=== PATIENT | female | born 1940 | race Caucasian/White ===

== ENCOUNTER 2017-04-13 12:04 | Emergency (ER) | payer MEDICARE, OTHER ==
[2017-04-13 12:09] VITALS: BP 171/112; PULSE 96; RESP 16; TEMP 97.5
[2017-04-13] MEDS ORDERED: LISINOPRIL 5 MG TAB PO STA (12:26)
--- NOTE | 2017-04-13 12:33 | ED ---
General Adult HPI - General Chief complaint: Upper Respiratory Infection Stated complaint: SORE THROAT Time Seen by Provider: 04/13/17 12:12 Source: patient, RN notes reviewed Mode of arrival: ambulatory Limitations: no limitations - History of Present Illness Initial comments: Chief complaint and history of present illness is a 77-year-old female with complaint of runny nose and sore throat since yesterday. Denies headache denies pain to the sinuses. Denies fever. - Related Data Home Medications Medication Instructions Recorded Confirmed Multivitamins, Thera [Multivitamin 1 tab PO DAILY 04/13/17 04/13/17 (formulary)] Thyroid,Pork [[place] Thyroid] 30 mg PO DAILY 04/13/17 04/13/17 Previous Rx's Medication Instructions Recorded Amoxicillin 500 mg PO Q8H 7 Days 04/13/17 Lisinopril [Zestril] 5 mg PO DAILY #60 tab 04/13/17 Allergies Allergy/AdvReac Type Severity Reaction Status Date / Time No Known Allergies Allergy Verified 04/13/17 12:21 Review of Systems ROS Statement: Those systems with pertinent positive or pertinent negative responses have been documented in the HPI. Review of systems. No headache or visual acuity changes. runny nose with sore throat. Patient denies any numbness no tingling no neuro deficits. No chest pain or shortness of breath no coughing. No nausea no vomiting. Appetite good. All systems are reviewed. Past medical problems hypothyroidism, no surgeries. Family history no cancers. Patient denies any ALLERGIES. Nonsmoker nondrinker. Patient's blood pressure is 171/112. Denies having had trouble with high blood pressure. The patient will be treated for high blood pressure with lisinopril and advised to follow-up with family physician within the next 1-2 weeks. Get a blood pressure rechecked several times a week. ROS Other: All systems not noted in ROS Statement are negative. Past Medical History Past Medical History: Thyroid Disorder Additional Past Medical History / Comment(s): uti History of Any Multi-Drug Resistant Organisms: None Reported Past Surgical History: No Surgical Hx Reported Past Psychological History: No Psychological Hx Reported Smoking Status: Former smoker Past Alcohol Use History: None Reported Past Drug Use History: None Reported General Exam - General Exam Comments Initial Comments: General: The patient is awake and alert, in no distress, and does not appear acutely ill. Complains of abundant runny nose and sore throat. Vital signs are temperature 97.5 pulse 96 referred rate 16 pulse ox 96% room air blood pressure elevated 171/112. This be treated the emergency room. Eye: Pupils are equal, round and reactive to light, extra-ocular movements are intact ; there is normal conjunctiva bilaterally. No signs of icterus. Ears, nose, mouth and throat: There are moist mucous membranes and no oral lesions. Neck: The neck is supple, there is no tenderness , no anterior cervical lymphadenopathy, no meningismus. Cardiovascular: There is a regular rate and rhythm. No murmur, rub or gallop is appreciated. Respiratory: Lungs are clear to auscultation, respirations are non-labored, breath sounds are equal. No wheezes, stridor, rales, or rhonchi. Gastrointestinal: Soft, non-distended, non-tender abdomen without masses or organomegaly noted. There is no rebound or guarding present. No CVA tenderness. Bowel sounds are unremarkable. Good appetite. Back: There is no tenderness to palpation in the midline. Musculoskeletal: Normal ROM, no tenderness, There is no pedal edema. There is no calf tenderness or swelling. Sensation intact. Neurological: No dizziness, no neuro deficits. Alert and oriented. No complaints of any focal or lateralizing findings. Skin: Skin is warm and dry and no rashes or lesions are noted. Limitations: no limitations Course Vital Signs 04/13/17 12:07 Temperature 97.5 F L Pulse Rate 96 Respiratory 16 Rate Blood Pressure 171/112 O2 Sat by Pulse 96 Oximetry Medical Decision Making - Medical Decision Making The patient be treated for an upper respiratory tract infection. In addition to amoxicillin 500 3 times a day for a week she also be placed on over-the- counter Claritin 10 mg daily. Told follow with family physician especially for repeat blood pressure checks. Disposition Clinical Impression: Upper respiratory infection, Essential hypertension Disposition: HOME SELF-CARE Condition: Fair Instructions: Upper Respiratory Infection (ED), Hypertension (ED) Additional Instructions: Take medications as directed including lisinopril for blood pressure, Claritin [id number] for nasal congestion. Amoxicillin for one week as directed. Follow-up with family physician for repeat, recheck of blood pressure. Prescriptions: Amoxicillin 500 mg PO Q8H 7 Days Lisinopril [Zestril] 5 mg PO DAILY #60 tab Time of Disposition: 12:33
== END 2017-04-13 12:49 | disposition home or self-care (01) ==
LOC: EC 12:04
DX: J06.9 Acute upper respiratory infection, unspecified (principal); I10 Essential (primary) hypertension; E07.9 Disorder of thyroid, unspecified; Z87.891 Personal history of nicotine dependence; Z79.899 Other long term (current) drug therapy
CPT/HCPCS: 99283

== ENCOUNTER 2024-06-15 07:43 | Emergency (ER) | payer MEDICARE, OTHER ==
[2024-06-15 07:55] VITALS: TEMP 98
--- NOTE | 2024-06-15 08:33 | ED ---
General Adult HPI - General Source: patient, RN notes reviewed Mode of arrival: wheelchair Limitations: no limitations <Qi Matias - Last Filed: 06/15/24 08:31> <Saeed Martinez - Last Filed: 06/15/24 09:48> - General Chief complaint: Recheck/Abnormal Lab/Rx Stated complaint: Ear Pain Time Seen by Provider: 06/15/24 08:31 - History of Present Illness Initial comments: Quick Note: This is an 84-year-old female who presents to the emergency department for feeling generally unwell. She went to urgent care a few days ago for problems with her ears and was told that she had a large amount of earwax and a possible infection. She was started on ofloxacin eardrops. States that she started to get an itchy rash afterwards and has also started to develop chills and lower back pain, which concerns her for a UTI. She has not measured any fevers. (Qi Matias) - Related Data Home Medications Medication Instructions Recorded Confirmed Multivitamins, Thera [Multivitamin 1 tab PO DAILY 04/13/17 04/13/17 (formulary)] Thyroid,Pork [[place] Thyroid] 30 mg PO DAILY 04/13/17 04/13/17 Previous Rx's Medication Instructions Recorded Amoxicillin 500 mg PO Q8H 7 Days capsule 04/13/17 lisinopriL [Zestril] 5 mg PO DAILY #60 tab 04/13/17 Allergies Allergy/AdvReac Type Severity Reaction Status Date / Time No Known Allergies Allergy Verified 06/15/24 07:54 Review of Systems ROS Other: All systems not noted in ROS Statement are negative. <Qi Matias - Last Filed: 06/15/24 08:31> ROS Other: All systems not noted in ROS Statement are negative. <Saeed Martinez - Last Filed: 06/15/24 09:48> ROS Statement: Those systems with pertinent positive or pertinent negative responses have been documented in the HPI. Past Medical History Past Medical History: Thyroid Disorder Additional Past Medical History / Comment(s): uti History of Any Multi-Drug Resistant Organisms: None Reported Past Surgical History: No Surgical Hx Reported Past Psychological History: No Psychological Hx Reported Past Alcohol Use History: None Reported Past Drug Use History: None Reported <Qi Matias - Last Filed: 06/15/24 08:31> General Exam Limitations: no limitations <Qi Matias - Last Filed: 06/15/24 08:31> General appearance: alert, in no apparent distress Head exam: Present: atraumatic, normocephalic Eye exam: Present: normal appearance, PERRL ENT exam: Absent: TM's normal bilaterally (Tympanic membrane within normal limits, left external auditory canal has impacted cerumen) Respiratory exam: Present: normal lung sounds bilaterally. Absent: respiratory distress, wheezes Cardiovascular Exam: Present: regular rate, normal rhythm GI/Abdominal exam: Present: soft. Absent: distended, tenderness Extremities exam: Present: normal inspection, normal capillary refill. Absent: pedal edema, calf tenderness Neurological exam: Present: alert, oriented X3, CN II-XII intact. Absent: motor sensory deficit Psychiatric exam: Present: normal affect, normal mood Skin exam: Present: warm, dry, intact, diaphoretic. Absent: cyanosis <Saeed Martinez - Last Filed: 06/15/24 09:48> - General Exam Comments Initial Comments: Visual Physical Exam Vital signs reviewed General: Well-appearing, nontoxic, no acute distress. Head: Normocephalic, atraumatic Eyes: PERRLA, EOMI ENT: Airway patent Chest: Nonlabored breathing Skin: No visual rash, normal skin tone Neuro: Alert and oriented 3 Musculoskeletal: No gross abnormalities (Qi Matias) Course Vital Signs 06/15/24 07:50 Temperature 98.0 F Pulse Rate 83 Respiratory 16 Rate Blood Pressure 177/90 O2 Sat by Pulse 95 Oximetry Medical Decision Making <Qi Matias - Last Filed: 06/15/24 08:31> - Lab Data Result diagrams: 06/15/24 08:21 06/15/24 08:21 <Saeed Martinez - Last Filed: 06/15/24 09:48> - Medical Decision Making I performed the QuickNote portion of this chart. Signed Qi Matias PA-C. (Qi Matias) Was pt. sent in by a medical professional or institution (JESSICA Forte, LOAN SERVICING OFFICER, urgent care, hospital, or long term...) When possible be specific @ -No Did you speak to anyone other than the patient for history (EMS, parent, family, police, friend...)? What history was obtained from this source @ -No Did you review nursing and triage notes (agree or disagree)? Why? @ -I reviewed and agree with nursing and triage notes Were old charts reviewed (outside hosp., previous admission, EMS record, old EKG, old radiological studies, urgent care reports/EKG's, long term records)? Report findings @ -No old charts were reviewed Differential Diagnosis otitis media, otitis externa, cerumen impaction, UTI EKG interpreted by me (3pts min.). @ -As above X-rays interpreted by me (1pt min.). @ -None done CT interpreted by me (1pt min.). @ -None done U/S interpreted by me (1pt. min.). @ -None done What testing was considered but not performed or refused? (CT, X-rays, U/S, labs)? Why? @ -None What meds were considered but not given or refused? Why? @ -None Did you discuss the management of the patient with other professionals (professionals i.e. , PA, LOAN SERVICING OFFICER, lab, RT, psych nurse, social work manager, looper fixer, teacher, code enforcement officer, keycase assembler)? Give summary @ -No Was smoking cessation discussed for >3mins.? @ -No Was critical care preformed (if so, how long)? @ -No Were there social determinants of health that impacted care today? How? (Homelessness, low income, unemployed, alcoholism, drug addiction, transportation, low edu. Level, literacy, decrease access to med. care, detention, rehab)? @ -No Was there de-escalation of care discussed even if they declined (Discuss DNR or withdrawal of care, Hospice)? DNR status @ -No What co-morbidities impacted this encounter? (DM, HTN, Smoking, COPD, CAD, Cancer, CVA, ARF, Chemo, Hep., AIDS, mental health diagnosis, sleep apnea, morbid obesity)? @ -None Was patient admitted / discharged? Hospital course, mention meds given and route, prescriptions, significant lab abnormalities, going to OR and other pertinent info. @ -84-year-old female presents for evaluation of left ear pain and concern for UTI. Patient does have a cerumen impaction on exam on the left. She is informed that she needs to obtain Debrox to soften this wax. She also was concerned about UTI. This test is performed and is negative. Patient has normal CBC, normal CMP, negative viral panel. Stable for discharge with outpatient follow-up at this time. Undiagnosed new problem with uncertain prognosis? @ -No Drug Therapy requiring intensive monitoring for toxicity (Heparin, Nitro, Insulin, Cardizem)? @ -No Were any procedures done? @ -No Diagnosis/symptom? @Earache, cerumen impaction Acute, or Chronic, or Acute on Chronic? @ -acute Uncomplicated (without systemic symptoms) or Complicated (systemic symptoms)? @ -Default Side effects of treatment? @ -No Exacerbation, Progression, or Severe Exacerbation? @ -No Poses a threat to life or bodily function? How? (Chest pain, [place], CA, pneumonia, PE, COPD, DKA, ARF, appy, cholecystitis, CVA, Diverticulitis, Homicidal, Suicidal, threat to staff... and all critical care pts) @ -No (Saeed Martinez) - Lab Data Lab Results 06/15/24 06/15/24 06/15/24 Range/Units 08:21 08:21 08:21 WBC 5.9 (3.8-10.6) k/uL RBC 4.90 (3.80-5.40) m/uL Hgb 14.3 (11.4-16.0) gm/dL Hct 42.9 (34.0-46.0) % MCV 87.5 (80.0-100.0) fL MCH 29.1 (25.0-35.0) pg MCHC 33.2 (31.0-37.0) g/dL RDW 13.6 (11.5-15.5) % Plt Count 246 (150-450) k/uL MPV 7.2 Neutrophils % 57 % Lymphocytes % 31 % Monocytes % 7 % Eosinophils % 4 % Basophils % 0 % Neutrophils # 3.3 (1.3-7.7) k/uL Lymphocytes # 1.8 (1.0-4.8) k/uL Monocytes # 0.4 (0-1.0) k/uL Eosinophils # 0.2 (0-0.7) k/uL Basophils # 0.0 (0-0.2) k/uL Sodium 139 (137-145) mmol/L Potassium 4.6 (3.5-5.1) mmol/L Chloride 111 H (98-107) mmol/L Carbon Dioxide 25 (22-30) mmol/L Anion Gap 3 mmol/L BUN 20 H (7-17) mg/dL Creatinine 0.81 (0.52-1.04) mg/dL Est GFR (CKD-EPI)AfAm 77 (>60 ml/min/1.73 sqM) Est GFR (CKD-EPI)NonAf 67 (>60 ml/min/1.73 sqM) Glucose 93 (74-99) mg/dL Plasma Lactic Acid Mitchel 0.9 (0.7-2.0) mmol/L Calcium 9.5 (8.4-10.2) mg/dL Total Bilirubin 0.5 (0.2-1.3) mg/dL AST 23 (14-36) U/L ALT 17 (4-34) U/L Alkaline Phosphatase 73 (38-126) U/L Total Protein 6.3 (6.3-8.2) g/dL Albumin 3.9 (3.5-5.0) g/dL Urine Color Urine Appearance (Clear) Urine pH (5.0-8.0) Ur Specific [place] (1.001-1.035) Urine Protein (Negative) Urine Glucose (UA) (Negative) Urine Ketones (Negative) Urine Blood (Negative) Urine Nitrite (Negative) Urine Bilirubin (Negative) Urine Urobilinogen (<2.0) mg/dL Ur Leukocyte Esterase (Negative) Urine WBC (0-5) /hpf Ur Squamous Epith Cells (0-4) /hpf Hyaline Casts (0-2) /lpf Urine Mucus (None) /hpf Influenza Type A (PCR) (Not Detectd) Influenza Type B (PCR) (Not Detectd) RSV (PCR) (Not Detectd) SARS-CoV-2 (PCR) (Not Detectd) 06/15/24 06/15/24 Range/Units 08:21 09:05 WBC (3.8-10.6) k/uL RBC (3.80-5.40) m/uL Hgb (11.4-16.0) gm/dL Hct (34.0-46.0) % MCV (80.0-100.0) fL MCH (25.0-35.0) pg MCHC (31.0-37.0) g/dL RDW (11.5-15.5) % Plt Count (150-450) k/uL MPV Neutrophils % % Lymphocytes % % Monocytes % % Eosinophils % % Basophils % % Neutrophils # (1.3-7.7) k/uL Lymphocytes # (1.0-4.8) k/uL Monocytes # (0-1.0) k/uL Eosinophils # (0-0.7) k/uL Basophils # (0-0.2) k/uL Sodium (137-145) mmol/L Potassium (3.5-5.1) mmol/L Chloride (98-107) mmol/L Carbon Dioxide (22-30) mmol/L Anion Gap mmol/L BUN (7-17) mg/dL Creatinine (0.52-1.04) mg/dL Est GFR (CKD-EPI)AfAm (>60 ml/min/1.73 sqM) Est GFR (CKD-EPI)NonAf (>60 ml/min/1.73 sqM) Glucose (74-99) mg/dL Plasma Lactic Acid [place] (0.7-2.0) mmol/L Calcium (8.4-10.2) mg/dL Total Bilirubin (0.2-1.3) mg/dL AST (14-36) U/L ALT (4-34) U/L Alkaline Phosphatase (38-126) U/L Total Protein (6.3-8.2) g/dL Albumin (3.5-5.0) g/dL Urine Color Colorless Urine Appearance Clear (Clear) Urine pH 5.0 (5.0-8.0) Ur Specific [place] 1.010 (1.001-1.035) Urine Protein Negative (Negative) Urine Glucose (UA) Negative (Negative) Urine Ketones Negative (Negative) Urine Blood Negative (Negative) Urine Nitrite Negative (Negative) Urine Bilirubin Negative (Negative) Urine Urobilinogen <2.0 (<2.0) mg/dL Ur Leukocyte Esterase Trace H (Negative) Urine WBC 2 (0-5) /hpf Ur Squamous Epith Cells 1 (0-4) /hpf Hyaline Casts 1 (0-2) /lpf Urine Mucus Rare H (None) /hpf Influenza Type A (PCR) Not Detected (Not Detectd) Influenza Type B (PCR) Not Detected (Not Detectd) RSV (PCR) Not Detected (Not Detectd) SARS-CoV-2 (PCR) Not Detected (Not Detectd) Disposition <Qi Matias - Last Filed: 06/15/24 08:31> Is patient prescribed a controlled substance at d/c from ED?: No Time of Disposition: 09:42 <Saeed Martinez - Last Filed: 06/15/24 09:48> Clinical Impression: Earache on left, Cerumen impaction Disposition: HOME SELF-CARE Condition: Good Instructions (If sedation given, give patient instructions): Carbamide Peroxide (Into the ear), Earache (ED) Referrals: None,Stated [Primary Care Provider] - 1-2 days Sachin Orozco MD [STAFF PHYSICIAN] - 1-2 days
[2024-06-15 08:44] LABS: Basophils % (A) 0 %; Eosinophils # (A) 0.2 k/uL (0-0.7); Eosinophils % (A) 4 %; HCT 42.9 % (34.0-46.0); HGB 14.3 gm/dL (11.4-16.0); Lymphocytes # (A) 1.8 k/uL (1.0-4.8); Lymphocytes % (A) 31 %; MCH 29.1 pg (25.0-35.0); MCHC 33.2 g/dL (31.0-37.0); MCV 87.5 fL (80.0-100.0); Mean Platelet Volume 7.2; Monocytes # (A) 0.4 k/uL (0-1.0); Monocytes % (A) 7 %; Neutrophils # (A) 3.3 k/uL (1.3-7.7); Neutrophils % (A) 57 %; Platelet Count 246 k/uL (150-450); RDW 13.6 % (11.5-15.5); WBC 5.9 k/uL (3.8-10.6)
[2024-06-15 08:54] LABS: ALT 17 U/L (4-34); AST 23 U/L (14-36); African American GFR (CKD) 77 (>60 ml/min/1.73 sqM); Albumin 3.9 g/dL (3.5-5.0); Alkaline Phosphatase 73 U/L (38-126); Anion Gap 3 mmol/L; Blood Urea Nitrogen 20 mg/dL (7-17); Calcium 9.5 mg/dL (8.4-10.2); Carbon Dioxide 25 mmol/L (22-30); Chloride 111 mmol/L (98-107); Glucose 93 mg/dL (74-99); Non-African American GFR(CKD) 67 (>60 ml/min/1.73 sqM); Potassium 4.6 mmol/L (3.5-5.1); Sodium 139 mmol/L (137-145); Total Bilirubin 0.5 mg/dL (0.2-1.3); Total Protein 6.3 g/dL (6.3-8.2)
[2024-06-15 09:38] LABS: Appearance,Urine Clear (Clear); Bilirubin,Urine Negative (Negative); Blood,Urine Negative (Negative); Color,Urine Colorless; Glucose,Urine (UA) Negative (Negative); Hyaline Casts,Urine 1 /lpf (0-2); Ketones,Urine Negative (Negative); Leukocyte Esterase,Urine Trace (Negative); Mucus,Urine Rare /hpf; Nitrite,Urine Negative (Negative); Protein,Urine Negative (Negative); Squamous Epithelial Cell,Urine 1 /hpf (0-4); Urobilinogen,Urine <2.0 mg/dL (<2.0); WBC,Urine 2 /hpf (0-5)
[2024-06-15 10:45] VITALS: BP 132/78; PULSE 80; RESP 18
== END 2024-06-15 10:45 | disposition home or self-care (01) ==
LOC: EC 07:43
DX: H61.22 Impacted cerumen, left ear (principal)
CPT/HCPCS: 36415; 80053; 81001; 83605; 85025; 87636; 99283